=== PATIENT | female | born 1935 | race Caucasian/White ===

== ENCOUNTER → 2016-12-03 | Outpatient (CLI) | payer MEDICARE, BC ==
--- NOTE | 2016-12-04 08:58 | MM ---
Reason for exam: screening (asymptomatic). Last mammogram was performed 1 year ago. History: Patient is postmenopausal. Family history of breast cancer in 2 sisters at age 65 and breast cancer in mother at age 65. 2 excisional biopsies of the left breast. 2 excisional biopsies of the right breast. Took hormonal contraceptives for 20 years beginning at age 30. Physical Findings: A clinical breast exam by your physician is recommended on an annual basis and results should be correlated with mammographic findings. MG 3D Screening Mammo W/Cad Bilateral CC and MLO view(s) were taken. Prior study comparison: December 01, 2015, bilateral MG 3d screening mammo w/cad. November 29, 2014, bilateral MG screening mammo w CAD. The breast tissue is heterogeneously dense. This may lower the sensitivity of mammography. Stable benign calcifications. There is no discrete abnormality. No significant changes when compared with prior studies. ASSESSMENT: Benign, BI-RAD 2 RECOMMENDATION: Routine screening mammogram of both breasts in 1 year.
== END | disposition home or self-care (01) ==
LOC: RADMAMWWP 09:41
PROVIDERS: ATTEND Internal Medicine
DX: Z12.31 Encounter for screening mammogram for malignant neoplasm of breast (principal)
CPT/HCPCS: 77063; G0202

== ENCOUNTER → 2017-08-27 | Outpatient (CLI) | payer MEDICARE, BC | END | disposition home or self-care (01) | LOC: LABPAT 09:32 | PROVIDERS: ATTEND Orthopaedic Surgery | DX: Z01.812 Encounter for preprocedural laboratory examination (principal) | CPT/HCPCS: 87070 ==

== ENCOUNTER 2017-09-03 08:00 | Inpatient (IN) | payer MEDICARE, BC ==
[2017-08-28 11:18] VITALS: BMI 27.3
[~2017-09-03 08:00] MED LIST: ACETAMINOPHEN TAB 500 MG TAB PO ONE; LIDOCAINE 1% 20 ML VIAL (10MG/ML) FOR IV START INTRADERMA PRN; MELOXICAM 7.5 MG TAB PO ONE; MORPHINE SULFATE 4 MG/0.8 ML SYRINGE (INJ) IV PRN; ONDANSETRON ODT 4 MG TAB PO ONE; TRANEXAMIC ACID 1,000 MG in SODIUM CHLORIDE 0.9% 50 ML IVPB ONE; ceFAZolin IN SWFI 2 GM/20 ML SYRINGE IVP ONE
[2017-09-03] MEDS: LACTATED RINGERS 1,000 ML IV SCH (08:31)
[2017-09-03] MEDS ORDERED: DEXAMETHASONE SOD PHOS (MDV) 100 MG/10 ML VIAL IVP ONE (08:39)
[2017-09-03] MEDS ORDERED: MIDAZOLAM 2 MG/2 ML VIAL ONE ×2 (08:44→09:43)
[2017-09-03] MEDS ORDERED: MIDAZOLAM 2 MG/2 ML VIAL IVP ONE ×2 (09:00→09:20)
[2017-09-03] MEDS ORDERED: ONDANSETRON 4 MG/2 ML VIAL IVP PRN (09:07)
[2017-09-03] MEDS ORDERED: MAGNESIUM HYDROXIDE 2,400 MG/10 ML CUP PO PRN (09:07)
[2017-09-03] MEDS ORDERED: NA PHOS,M-B/NA PHOS,DI-BA 133 ML ENEMA RECTAL PRN (09:07)
[2017-09-03] MEDS ORDERED: HYDROcodone/APAP 5-325MG 1 EACH TAB PO PRN ×2 (09:07)
[2017-09-03] MEDS ORDERED: DIAZEPAM 5 MG TAB PO PRN ×2 (09:07)
[2017-09-03] MEDS ORDERED: NALOXONE 0.4 MG/ML 1 ML VIAL IV PRN (09:07)
[2017-09-03] MEDS ORDERED: BISACODYL 10 MG SUPP RECTAL PRN (09:07)
[2017-09-03] MEDS ORDERED: MORPHINE SULFATE 4 MG/0.8 ML SYRINGE (INJ) IVP PRN ×4 (09:07)
[2017-09-03] MEDS ORDERED: hydrOXYzine PAMOATE 25 MG CAP PO PRN (09:07)
[2017-09-03] MEDS ORDERED: fentaNYL (PF) 50 MCG/ML 2 ML AMP ONE (09:43)
[2017-09-03] MEDS ORDERED: SODIUM CHLORIDE 0.9% 100 ML BAG ONE (09:43)
[2017-09-03] MEDS ORDERED: TRANEXAMIC ACID 1,000 MG/10 ML VIAL ONE (09:43)
[2017-09-03] MEDS ORDERED: PROPOFOL 10 MG/ML 20 ML VIAL IV ONE (09:43)
[2017-09-03] MEDS ORDERED: ROPIVACAINE 1,100 MG, SODIUM CHLORIDE 0.9% 330 ML MISCELLANE PRN ×2 (10:07)
--- NOTE | 2017-09-03 10:09 | P.ONQ ---
Anesthesiology Proc Note - PNB - Peripheral Nerve Block Performed Left Adductor Canal Time Out Performed: Yes (08:50) Indication: Acute Post-Operative Pain, Requested by physician (Dr Mark Sebastian ) Sedation Type: Sedate with meaningful contact maintained Preparation: Sterile Dressing Position: Supine Catheter: Indwelling Needle Types: Other (see comment) (Ambrocio) Needle Size: 100mm (4") Needle Gauge: 21 Technique: Ultrasound (20cc) Blood Aspirated: No Pain Paresthesia on Injection Noted: No Resistance on Injection: Normal Events: Uneventful and Well Tolerated
[2017-09-03] MEDS: ROPIVACAINE 246.25 MG, EPINEPHrine 0.5 MG, KETOROLAC 30 MG, cloNIDine HCL/PF 80 MCG, WA... MISCELLANE ONE ×10 (10:12→10:31)
[2017-09-03] MEDS ORDERED: ceFAZolin 3,000 MG in SODIUM CHLORIDE 0.9% IRRIGATIO 3,000 ML IRRIGATION ONE (10:12)
--- NOTE | 2017-09-03 10:52 | P.OP ---
Date of Procedure: 09/03/17 Preoperative Diagnosis: Severe osteoarthritis left knee Postoperative Diagnosis: Severe osteoarthritis left knee Procedure(s) Performed: Left total knee arthroplasty Implants: Goncalves and Nephew Oxinium femoral component size 5, left narrow Goncalves & Nephew Tamiko II left nonporous tibial baseplate size 4 Goncalves & Nephew size 9 mm Legion XLPE high flexion articular insert, size 3-4 Goncalves & Nephew Tamiko II resurfacing patellar component, 32 mm All components were cemented using Naa bone cement.. The articulation is Oxinium on polyethylene. Anesthesia: spinal Surgeon: Mark Sebastian Dancer Or Choreographer #1: Vianney Benson Estimated Blood Loss (ml): 50 Pathology: other (Bone and cartilage) Condition: stable Disposition: PACU Indications for Procedure: After failure of conservative treatment we discussed the surgical and nonsurgical treatment options at length. Patient wishes to proceed with a total knee arthroplasty. Complications specific to this procedure were discussed at length, including but not limited to infection, bleeding, stiffness , and nerve injury. Patient is aware of all these complications and informed consent was obtained Operative Findings: The operative findings are consistent with severe osteoarthritis of the left knee Description of Procedure: Patient was seen in the preoperative area consent was reviewed and operative site was marked with a skin marker. An adductor canal pain catheter was placed by anesthesia in the preoperative area. Patient was then brought to the operating room and given preoperative antibiotics intravenously. A spinal anesthetic was administered by the anesthesia department. A tourniquet was placed on the upper thigh and the lower extremity was prepped and draped in usual sterile fashion. A gram of transexamic acid was given. A universal timeout was then performed which confirmed the patient's name, surgical site, ALLERGIES, and consent. The lower extremity was then exsanguinated and tourniquet was inflated to 250 mmHg. A standard and anterior midline approach to the knee was performed. The skin and subcutaneous tissue was dissected down to the patellar tendon. A medial parapatellar arthrotomy was then performed. The knee was then extended, the patellar was everted, and the knee was again flexed. Anterior horns of both menisci were excised, and a release was performed to the posterior medial aspect of the knee. On gross visual inspection, there was complete loss of articular cartilage in the medial and patellofemoral joint spaces. There was also significant cartilage damage in the lateral compartment. There were multiple periarticular osteophytes which were then removed with a Ronguer. The femoral canal was then opened with the appropriate drill, and the intramedullary femoral cutting guide was then placed and set for 4 of valgus. The distal femoral cutting block was then pinned in place, and the distal femur was then cut. The cutting block was then removed and the cut was checked for flatness. Next, the sizing guide was then placed and set for 3 external rotation based off of the epicondylar axis and Whitesides line. After the femur was sized, the appropriate 4-in-1 cutting block was then pinned in place. The anterior condyles were cut without notching. The posterior and chamfer cuts were performed while protecting the collateral ligaments. The cutting block was then removed, and the femoral canal was plugged with autologous bone. Attention was then directed to the tibia. The remaining ACL was removed with a Ronguer, and the tibia was then gently subluxed forward with a large bent knee retractor. Any remaining menisci was excised. The posterior lateral corner was cauterized in order to cauterize the lateral geniculate artery. The extra medullary tibial cutting guide was then placed, set for the appropriate rotation , slope, and depth of resection. The proximal tibia cutting guide was then pinned in place. Proximal tibia was then cut and sized. Next trials were then placed with the appropriate-sized insert. The knee was able to fully extend and flex to 130 and was stable throughout all range of motion. The knee was then extended, patella everted. Patella was then measured, and then using an osteotomy guide, the patella was cut at the appropriate level. The patella was then measured and drilled and the patella trial was then placed. The knee was then taken through range of motion with the patella trial and the patella tracked normally. The knee was then extended patella trial was then removed and the patella was everted. Knee was then flexed and lug holes were drilled through the femoral trial and the femoral trial was then removed. The tibial was then exposed, and the tibial broach guide was then pinned in place after it was set for the appropriate rotation to allow for the most coverage without overhang. The tibia was then reamed and broached. The cut surfaces of bone were then irrigated with pulsatile lavage. The posterior structures were injected with the ropivacaine solution. The knee was also irrigated with Irrisept solution. The components were then opened, the cement was mixed, and the components were then cemented in place. The cement was allowed to harden with the knee in full extension. While the cement was hardening, the remaining soft tissues were then injected with a ropivacaine solution, which consisted of 246.25 mg of ropivacaine, 0.5 mg of epinephrine, 30 mg of Toradol, 80 g of clonidine, and 48.45 mL of sterile water, for a total of 100 mL of fluid injected. After the cemented hardened. The tourniquet was released, and hemostasis was obtained. A second gram of transexamic acid was given. The knee was again irrigated. The knee was again taken through range of motion and found to be stable throughout all range of motion of 0-130 , and the patella tracked normally. The fascia was then closed with #2 strata fix suture. The subcutaneous tissue was closed with 3-0 Vicryl and 3-0 strata fix. Dermabond glue was used for the skin and placed with the knee in flexion. The patient was placed in a sterile silver dressing. Patient was then transferred to recovery room in stable condition. The account assistant KEVIN Wallace was required due the complexity surgery and the need for a skilled ophthalmic surgical assistant. She assisted in positioning, draping, retraction, and closure of the wound.
--- NOTE | 2017-09-03 12:01 | XR ---
EXAMINATION TYPE: XR knee limited LT DATE OF EXAM: 09/03/2017 COMPARISON: NONE TECHNIQUE: Two views submitted HISTORY: Post op FINDINGS: There is a prosthetic knee in near anatomic alignment. There is soft tissue edema and emphysema. IMPRESSION: 1. Postoperative change. Appears in near-anatomic alignment
[2017-09-03] MEDS: SODIUM CHLORIDE 0.9% 1,000 ML IV SCH (12:33)
[2017-09-03] MEDS ORDERED: traMADol 50 MG TAB PO PRN (13:57)
[2017-09-03] MEDS ORDERED: ACETAMINOPHEN TAB 325 MG TAB PO PRN (13:58)
--- NOTE | 2017-09-03 14:20 | P.CONS ---
History of Present Illness - Reason for Consult Consult date: 09/03/17 Hypertension Requesting physician: Mark Sebastian - Chief Complaint left knee pain - History of Present Illness Patient is an 82-year-old female with a past medical history of arthritis, fibrocystic breast, and white coat hypertension who presented for elective left total knee arthroplasty. She typically sees Dr. Le she is not on any chronic medications. We are asked to consult for medical management. Patient states her preoperative blood pressure showed a systolic blood pressure in the 200s. She states she has a history of whitecoat hypertension and her blood pressure is typically normal at home. She sees Dr. Le once a year for her physical. She reports that she's been having left knee pain for the last several years. Approximately one year ago she underwent an injection in the left knee which was not effective. Since that time she is struggled with pain. She has tried pain medications but all of them including Ultram resulted in a groggy medicated feeling. She therefore decided to go for surgery on the left knee. She reports no recent illnesses. She denies any chest pain, shortness of breath , nausea, vomiting, diarrhea, or dysuria prior to surgery. She has no other complaints currently. She is hoping to go home without any narcotic-based pain medications. We discussed the alternative is typically at the least sedating out of all of the narcotic-based pain medications. I did discuss with her that Tylenol and moving may not adequately control her pain after surgery. Review of Systems Positives: + Left knee pain Remainder of review of systems is negative Past Medical History Past Medical History: Osteoarthritis (OA) Additional Past Medical History / Comment(s): Fibrocystic breast disease, White coat hypertension History of Any Multi-Drug Resistant Organisms: None Reported Past Surgical History: Breast Surgery, Cholecystectomy Additional Past Surgical History / Comment(s): fibercystic tumors removed diana breasts Past Anesthesia/Blood Transfusion Reactions: Postoperative Nausea & Vomiting ( PONV) Additional Past Anesthesia/Blood Transfusion Reaction / Comm: PONV 40yrs ago post cholecystectomy Past Psychological History: No Psychological Hx Reported Smoking Status: Never smoker Past Alcohol Use History: None Reported Past Drug Use History: None Reported - Past Family History Mother Family Medical History: Cancer, Diabetes Mellitus Additional Family Medical History / Comment(s): breast CA Sister(s) Family Medical History: Cancer Additional Family Medical History / Comment(s): Breast CA Father Additional Family Medical History / Comment(s): Alcoholism, heart disease Medications and Allergies Home Medications Medication Instructions Recorded Confirmed Type Aspirin 81 mg PO DAILY 08/28/17 09/03/17 History Bone And Immune Health Supp 1 tab PO DAILY 08/28/17 09/03/17 History Calcium Carbonate/Vitamin D3 1 tab PO DAILY 08/28/17 09/03/17 History [Calcium 600-Vit D3 200 Tablet] Allergies Allergy/AdvReac Type Severity Reaction Status Date / Time No Known Allergies Allergy Verified 09/03/17 12:23 Physical Exam Osteopathic Statement: *. No significant issues noted on an osteopathic structural exam other than those noted in the History and Physical/Consult. Vitals: Vital Signs Temp Pulse Resp BP Pulse Ox 09/03/17 14:09 88 138/65 09/03/17 14:00 90 144/65 09/03/17 13:45 77 142/67 09/03/17 13:30 76 145/67 09/03/17 13:15 142/67 09/03/17 13:00 90 152/71 09/03/17 12:41 97.6 F 76 13 145/67 97 09/03/17 12:00 80 16 130/60 94 L 09/03/17 11:45 79 16 131/60 94 L 09/03/17 11:30 72 16 122/61 95 09/03/17 11:20 97 F L 82 16 131/62 93 L 09/03/17 09:03 78 16 169/76 100 09/03/17 08:20 97.6 F 84 16 186/74 96 Intake and Output 09/02/17 09/03/17 09/03/17 22:59 06:59 14:59 Intake Total 901 Output Total 50 Balance 851 Intake: IV 901 Output: Estimated Blood Loss 50 General: non toxic, mild distress due to pain, appears at stated age, normal weight Derm: no unusual rashes/lesions no unusual ecchymoses, warm, dry Head: atraumatic, normocephalic, symmetric Eyes: EOMI, no lid lag, anicteric sclera, pupils equal round reactive to light ENT: Nose and ears atraumatic, no thrush, no pharyngeal erythema Neck: No thyromegaly, no cervical lymphadenopathy, trachea midline, supple Mouth: no lip lesion, mucus membranes moist Cardiovascular: S1S2 reg, no murmur, positive posterior tibial pulse bilateral, no edema, capillary refill less than 2 seconds Lungs: CTA bilateral, no rhonchi, no rales , no accessory muscle use Abdominal: soft, nontender to palpation, no guarding, no appreciable organomegaly, normal bowel sounds Ext: no gross muscle atrophy, muscle strength 5 out of 5 upper extremities grossly, no contractures, left knee with Michael wrap in place and pain pump in place Neuro: CN II-XI grossly intact, light touch intact all 4 extremities, finger to nose within normal limits, Psych: Alert, oriented, appropriate affect Assessment and Plan Assessment: Osteoarthritis status post left knee arthroplasty -Aspirin per surgery -Added Ultram and Tylenol as options for pain that she does not want more sedating things such as [place] or Motrin -Continue with On-Q pain pump -Check CBC in a.m. Elevated blood pressures without history of hypertension -Follow blood pressures closely -Has history of white coat hypertension Thank you for allowing us to participate in the care of this pleasant patient. DVT prophylaxis: ASA Discussed with: Patient, family, nursing Anticipated discharge: [address]: home with home health A total of 40 minutes was spent on the care of this complex patient more than 50 % of the time was spent in counseling and care coordination.
[2017-09-03] MEDS: ceFAZolin IN SWFI 2 GM/20 ML SYRINGE IVP SCH (17:35)
[2017-09-03] MEDS ORDERED: SENNOSIDES-DOCUSATE SODIUM 1 EACH TAB PO SCH (21:00)
[2017-09-03] MEDS: ASPIRIN 325 MG TAB PO SCH (21:19)
[2017-09-04] MEDS: ceFAZolin IN SWFI 2 GM/20 ML SYRINGE IVP SCH (01:35)
[2017-09-04 01:48] VITALS: TEMP 98.3
[2017-09-04] MEDS: SODIUM CHLORIDE 0.9% 1,000 ML IV SCH (03:19)
[2017-09-04] MEDS: LACTATED RINGERS 1,000 ML IV SCH (03:19)
[2017-09-04 07:22] LABS: Basophils % (A) 0 %; Eosinophils % (A) 0 %; HCT 34.8 % (34.0-46.0); HGB 11.5 gm/dL (11.4-16.0); Lymphocytes # (A) 1.7 k/uL (1.0-4.8); Lymphocytes % (A) 14 %; MCH 29.6 pg (25.0-35.0); MCHC 33.1 g/dL (31.0-37.0); MCV 89.3 fL (80.0-100.0); Mean Platelet Volume 7.6; Monocytes # (A) 0.7 k/uL (0-1.0); Monocytes % (A) 6 %; Neutrophils # (A) 9.1 k/uL (1.3-7.7); Neutrophils % (A) 78 %; Platelet Count 172 k/uL (150-450); RBC 3.89 m/uL (3.80-5.40); RDW 12.7 % (11.5-15.5); WBC 11.7 k/uL (3.8-10.6)
[2017-09-04 07:50] VITALS: BP 148/77; PULSE 70; RESP 16
--- NOTE | 2017-09-04 08:14 | P.DS ---
Providers Date of admission: 09/03/17 08:00 Expected date of discharge: 09/04/17 Attending physician: Mark Sebastian Consults: 09/03/17 09:07 Consult Physician Routine Consulting Provider: Jeffy Le Consult Reason/Comments: medical management Do you want consulting provider notified?: Yes 09/03/17 12:33 Consult Physician Routine Consulting Provider: Shayne Marion Consult Reason/Comments: medical management Do you want consulting provider notified?: Yes Primary care physician: Jeffy Le - Discharge Diagnosis(es) (1) Primary osteoarthritis of left knee Current Visit: Yes Status: Acute (2) S/P total knee arthroplasty Current Visit: Yes Status: Acute Hospital Course: This is a 82-year-old female with known history of degenerative arthritis of the left knee. The patient presents for evaluation. After discussion and consideration patient elects to proceed with total knee arthroplasty. The patient is seen preoperatively by Dr. Sebastian and medically cleared for surgery by their primary care physician. Patient is [facility] to [facility] on 09/03/2017 for total knee arthroplasty. The procedures performed without complication or sequelae. The patient is doing well postoperatively. Labs and vital signs are stable on day of discharge. On day of discharge patient's knee incision is healing well. There is minimal erythema. There is no drainage noted at this time. There is minimal soft tissue swelling to the knee. Patient has full foot and ankle motion without difficulty or pain. Neurovascular status to the left lower extremity is intact. Patient is discharged home in good condition. Please see med rec for accurate list of home medications. Plan - Discharge Summary Discharge Rx Participant: Yes New Discharge Prescriptions: New Aspirin 325 mg PO BID #60 tab Sennosides [Senokot] 1 tab PO BID #60 tablet traMADol HCl [Ultram] 1 - 2 tab PO Q6H PRN #90 tab PRN Reason: Pain No Action Aspirin 81 mg PO DAILY Calcium Carbonate/Vitamin D3 [Calcium 600-Vit D3 200 Tablet] 1 tab PO DAILY Bone And Immune Health Supp 1 tab PO DAILY Discharge Medication List Aspirin 81 mg PO DAILY 08/28/17 [History] Bone And Immune Health Supp 1 tab PO DAILY 08/28/17 [History] Calcium Carbonate/Vitamin D3 [Calcium 600-Vit D3 200 Tablet] 1 tab PO DAILY [History] Aspirin 325 mg PO BID #60 tab 09/04/17 [Rx] Sennosides [Senokot] 1 tab PO BID #60 tablet 09/04/17 [Rx] traMADol HCl [Ultram] 1 - 2 tab PO Q6H PRN #90 tab 09/04/17 [Rx] Follow up Appointment(s)/Referral(s): Mark Sebastian DO [Doctor of Osteopathic Medicine] - 2 Weeks Activity/Diet/Wound Care/Special Instructions: Weightbearing as tolerated with a walker CPM 5-6h daily Leave dressing intact. May be removed by home care nurse in 10 days. May shower with dressing on. [facility] with questions or concerns [phone] Discharge Disposition: HOME WITH HOME HEALTH SERVICES
--- NOTE | 2017-09-04 08:18 | P.PN ---
Subjective Progress Note Date: 09/04/17 Principal diagnosis: Patient is an 82-year-old female with a past medical history of arthritis, fibrocystic breast, and white coat hypertension who presented for elective left total knee arthroplasty. She typically sees Dr. Le she is not on any chronic medications. We are asked to consult for medical management. Patient states her preoperative blood pressure showed a systolic blood pressure in the 200s. She sees Dr. Le once a year for her physical. She has a blood pressure cuff at home. Patient seen and examined at bedside. Feeling well. Denies pain. No nausea, no vomiting, no BM yet. No chest pain or shortness of breath. Feeling well wants to go home. Objective - Vital Signs Vital signs: Vital Signs Temp 98.3 F 09/04/17 01:29 Pulse 70 09/04/17 07:49 Resp 16 09/04/17 07:49 BP 148/77 09/04/17 07:49 Pulse Ox 95 09/04/17 07:49 Intake & Output 09/03/17 09/04/17 09/04/17 18:59 06:59 18:59 Intake Total 1181 Output Total 350 Balance 831 Intake: IV 901 Oral 280 Output: Urine 300 Estimated Blood Loss 50 Other: # Voids 1 1 - Exam General: non toxic, no distress, appears at stated age Derm: warm, dry Head: atraumatic, normocephalic, symmetric Eyes: EOMI, no lid lag, anicteric sclera Mouth: no lip lesion, mucus membranes moist Cardiovascular: S1S2 reg, no murmur, positive posterior tibial pulse bilateral, Lungs: CTA bilateral, no rhonchi, no rales , no accessory muscle use Abdominal: soft, nontender to palpation, no guarding, no appreciable organomegaly Ext: no gross muscle atrophy, no edema, no contractures Neuro: CN II-XI grossly intact, no focal neuro deficits Psych: Alert, oriented, appropriate affect - Labs CBC & Chem 7: 09/04/17 06:16 Labs: Abnormal Lab Results - Last 24 Hours (Table) 09/04/17 Range/Units 06:16 WBC 11.7 H (3.8-10.6) k/uL Neutrophils # 9.1 H (1.3-7.7) k/uL Assessment and Plan Assessment: Elevated blood pressures without history of hypertension -D/W patient she will continue to follow her BP at home and will see Dr. Le in 2 weeks for a recheck. She already has a blood pressure cuff at home. Will not start medications at this point in time. -Has history of white coat hypertension Osteoarthritis status post left knee arthroplasty -Aspirin per surgery - pain control -Continue with On-Q pain pump Thank you for allowing us to participate in the care of this pleasant patient. She is medically stable for discharged once cleared by ortho. DVT prophylaxis: ASA Discussed with: Patient Anticipated discharge place: home with home health A total of 25 minutes was spent on the care of this complex patient more than 50 % of the time was spent in counseling and care coordination.
[2017-09-04] MEDS ORDERED: MELOXICAM 7.5 MG TAB PO SCH (09:00)
--- NOTE | 2017-09-04 09:33 | P.PN ---
Progress Note - Text The patient is status post left adductor canal catheter placement. The catheter was placed for postoperative pain control, status post total left arthroplasty. Ropivacaine 0.2% is infusing at 8 mLs per hour. The patient has no complaints of left lower extremity numbness or weakness. Patient's VAS score is 0 -10. Assessment: Patient's adductor canal catheter is in place and working appropriately. Plan: continue infusion and adjust it as needed.
[2017-09-04] MEDS: ASPIRIN 325 MG TAB PO SCH (11:18)
[2017-09-04] MEDS ORDERED: MORPHINE ORAL SOLN 10 MG/5 ML CUP PO PRN ×3 (13:53→13:55)
--- NOTE | 2017-09-06 10:36 | CDI ---
Last Revision, April 2017 Documentation Clarification Form Date: 09/06/17 From: Shanna Martinez Admit Date: 09/03/2017 8:00:00 AM Patient Name: Светлана Gonzalez Visit Number: [id number] Discharge Date: 09/03/17 ATTENTION: The Clinical Documentation Specialists (CDI) and [facility] Coding Staff appreciate your assistance in clarifying documentation. Please respond to the clarification below the line at the bottom and electronically sign. The CDI & [facility] Coding staff will review the response and follow-up if needed. Please note: Queries are made part of the Legal Health Record. If you have any questions, please contact the author of this message via ITS. Dr. Mark Sebastian Patient has been described as-Patient has BMI that is measures above average for populous and may wish to discuss weight loss options further with a family member. Calculated BMI is 27 In order to capture the severity of condition associated with patient BMI of 27 , a clinical diagnoses needs to be documented by the physician. Please clarify : Obese Morbidly obese Other, please specify ____ Unable to determine MTDD
--- NOTE | 2017-09-11 12:14 | CDI ---
Last Revision, April 2017 Documentation Clarification Form Date: 09/11/17 From: Shanna Martinez Phone: Jessica Jaime Grievance Coordinator [phone] Patient Name: Светлана Gonzalez Visit Number: [id number] Admit Date: 09/03/17 Discharge Date: 09/04/17 ATTENTION: The Clinical Documentation Specialists (CDI) and [facility] Coding Staff appreciate your assistance in clarifying documentation. Please respond to the clarification below the line at the bottom and electronically sign. The CDI & [facility] Coding staff will review the response and follow-up if needed. Please note: Queries are made part of the Legal Health Record. If you have any questions, please contact the author of this message via ITS. Dr. Mark Sebastian Patient has been described as-Patient has BMI that is measures above average for populous and may wish to discuss weight loss options further with a family member. Calculated BMI is 27 In order to capture the severity of condition associated with patient BMI of 27 , a clinical diagnoses needs to be documented by the physician. Please clarify : Obese Morbidly obese Other, please specify ____ Unable to determine MTDD
== END 2017-09-04 14:38 | disposition home health service (06) | DRG 470 ==
LOC: 2ORMAIN 08:00 → 3SUR 11:47
PROVIDERS: ADMIT Orthopaedic Surgery; ATTEND Orthopaedic Surgery
PROC: 0SRD069 Replacement of Left Knee Joint with Oxidized Zirconium on Polyethylene Synthetic Substitute, Cemented, Open Approach (ICD-10-PCS; principal; 2017-09-03 09:50)
DX: M17.12 Unilateral primary osteoarthritis, left knee (principal); M25.762 Osteophyte, left knee; R03.0 Elevated blood-pressure reading, without diagnosis of hypertension; Z83.3 Family history of diabetes mellitus; Z90.49 Acquired absence of other specified parts of digestive tract; Z79.82 Long term (current) use of aspirin; Z79.1 Long term (current) use of non-steroidal anti-inflammatories (NSAID); Z79.891 Long term (current) use of opiate analgesic; Z80.3 Family history of malignant neoplasm of breast; Z82.49 Family history of ischemic heart disease and other diseases of the circulatory system; Z79.899 Other long term (current) drug therapy
CPT/HCPCS: 85025; 88300

== ENCOUNTER → 2017-12-09 | Outpatient (CLI) | payer MEDICARE, BC ==
--- NOTE | 2017-12-11 11:40 | MM ---
Reason for exam: screening (asymptomatic). Last mammogram was performed 1 year ago. History: Patient is postmenopausal. Family history of breast cancer in 2 sisters at age 65 and breast cancer in mother at age 65. 2 excisional biopsies of the left breast. 2 excisional biopsies of the right breast. Took hormonal contraceptives for 20 years beginning at age 30. Physical Findings: A clinical breast exam by your physician is recommended on an annual basis and results should be correlated with mammographic findings. MG 3D Screening Mammo W/Cad Bilateral CC and MLO view(s) were taken. Prior study comparison: December 03, 2016, bilateral MG 3d screening mammo w/cad. December 01, 2015, bilateral MG 3d screening mammo w/cad. There are scattered fibroglandular densities. No significant changes when compared with prior studies. ASSESSMENT: Benign, BI-RAD 2 RECOMMENDATION: Routine screening mammogram of both breasts in 1 year.
== END | disposition home or self-care (01) ==
LOC: RADMAMWWP 09:49
PROVIDERS: ATTEND Internal Medicine
DX: Z12.31 Encounter for screening mammogram for malignant neoplasm of breast (principal)
CPT/HCPCS: 77063; 77067

== ENCOUNTER → 2018-12-11 | Outpatient (CLI) | payer MEDICARE, BC ==
--- NOTE | 2018-12-12 14:54 | MM ---
Reason for exam: screening (asymptomatic). Last mammogram was performed 1 year ago. History: Patient is postmenopausal. Family history of breast cancer in 2 sisters at age 65 and breast cancer in mother at age 65. 2 excisional biopsies of the left breast. 2 excisional biopsies of the right breast. Took hormonal contraceptives for 20 years beginning at age 30. Physical Findings: A clinical breast exam by your physician is recommended on an annual basis and results should be correlated with mammographic findings. MG 3D Screening Mammo W/Cad Bilateral CC and MLO view(s) were taken. Prior study comparison: December 09, 2017, bilateral MG 3d screening mammo w/cad. December 03, 2016, bilateral MG 3d screening mammo w/cad. The breast tissue is heterogeneously dense. This may lower the sensitivity of mammography. Benign appearing bilateral calcifications. No suspicious abnormality. Chronic right nipple retraction. Post surgical change on the left. No significant changes when compared with prior studies. ASSESSMENT: Benign, BI-RAD 2 RECOMMENDATION: Routine screening mammogram of both breasts in 1 year.
== END | disposition home or self-care (01) ==
LOC: RADMAMWWP 11:35
PROVIDERS: ATTEND Internal Medicine
DX: Z12.31 Encounter for screening mammogram for malignant neoplasm of breast (principal)
CPT/HCPCS: 77063; 77067

== ENCOUNTER → 2020-01-15 | Outpatient (CLI) | payer MEDICARE, BC ==
--- NOTE | 2020-01-19 12:17 | MM ---
Reason for exam: screening (asymptomatic). Last mammogram was performed 1 year and 1 month ago. History: Patient is postmenopausal. Family history of breast cancer in 2 sisters at age 65 and breast cancer in mother at age 65. 2 excisional biopsies of the left breast. 2 excisional biopsies of the right breast. Took hormonal contraceptives for 20 years beginning at age 30. Physical Findings: A clinical breast exam by your physician is recommended on an annual basis and results should be correlated with mammographic findings. MG 3D Screening Mammo W/Cad Bilateral CC and MLO view(s) were taken. Prior study comparison: December 11, 2018, bilateral MG 3d screening mammo w/cad. December 09, 2017, bilateral MG 3d screening mammo w/cad. There are scattered fibroglandular densities. Finding #1: Architectural distortion in the upper outer quadrant of the left breast consistent with known excision changes. Finding #2: There are typically benign round calcifications in both breasts. There is no new dominant lesion. ASSESSMENT: Benign, BI-RAD 2 RECOMMENDATION: Routine screening mammogram of both breasts in 1 year.
== END | disposition home or self-care (01) ==
LOC: RADMAMWWP 13:04
PROVIDERS: ATTEND Nurse Practitioner Adult Health
DX: Z12.31 Encounter for screening mammogram for malignant neoplasm of breast (principal)
CPT/HCPCS: 77063; 77067

== ENCOUNTER → 2020-11-30 | Outpatient (CLI) | payer MEDICARE, BC ==
--- NOTE | 2020-11-30 15:15 | CT ---
EXAMINATION TYPE: CT abdomen pelvis w con DATE OF EXAM: 11/30/2020 COMPARISON: None HISTORY: Patient states she had an US that showed spot on right kidney. CT DLP: 1256 mGycm CONTRAST: CT scan of the abdomen and pelvis is performed with Oral Contrast and with IV Contrast, patient injec dominic with 80 mL of Isovue M300. FINDINGS: LUNG BASES-: No visible nodule. No infiltrate. LIVER/GB: Cholecystectomy clips are in place. No space occupying hepatic lesion. Biliary tree is of n ormal caliber. PANCREAS: No inflammation. No distinct mass. SPLEEN: No splenic enlargement. No lesion seen. ADRENALS: No nodule. No thickening. KIDNEYS/BLADDER: Extrarenal pelvis right kidney. Parapelvic cyst noted left kidney. No hydronephrosi s. No nephrolithiasis. No distinct renal mass. Urinary bladder grossly unremarkable. BOWEL: Normal appendix. Normal bowel caliber. No inflammation. GENITAL ORGANS: No gross abnormality. LYMPH NODES: No greater than 1cm abdominal or pelvic lymph nodes are appreciated. AORTA: No significant abnormality. OSSEOUS STRUCTURES: No significant abnormality is seen. OTHER: No significant additional abnormality is seen. IMPRESSION: 1. No evidence of solid renal mass. Parapelvic cyst left kidney and extrarenal pelvis right kidney.
== END | disposition home or self-care (01) ==
LOC: RADCTMAIN 12:32
PROVIDERS: ATTEND Internal Medicine
DX: N28.1 Cyst of kidney, acquired (principal)
CPT/HCPCS: 82565; 84520; 74177; 36415; Q9967 ×2

== ENCOUNTER → 2021-03-09 | Outpatient (CLI) | payer MEDICARE, BC ==
--- NOTE | 2021-03-09 09:21 | BD ---
EXAMINATION TYPE: Axial Bone Density DATE OF EXAM: 03/09/2021 COMPARISON: 11.22.2011 CLINICAL HISTORY: 85 YR OLD FEMALE.....ICD-10 CODE: M81.0 OSTERPOROSIS.... Height: 63.8 Weight: 167 FRAX RISK QUESTIONS: NOTHING ADDITIONAL TO ADD HERE RISK FACTORS HISTORY OF: Postmenopausal woman: YES, AT ABOUT 52 YRS OLD Lost more than 2 inches in height since high school: YES Frequent falls: PT IS ELDERLY Hyperparathyroidism: NO Adrenal Insufficiency: NO MEDICATIONS: Additional Medications: BP MEDS, VIT D NSAIDS FOR ARTHRITIS Additional History: HYPERTENSION, VIT D DEFICIENT, ARTHRITIS, EXAM MEASUREMENTS: Bone mineral densitometry was performed using the [employer]. Bone mineral density as measured about the Lumbar spine is: ----- L1-L4(G/cm2): 0.994 T Score Values are as follows: ----- L1: -2.4 ----- L2: -2.1 ----- L3: -0.3 ----- L4: -1.6 ----- L1-L4: -1.6 Bone mineral density has: Decreased -1.3% since study of: 11.22.2011 Bone mineral density about the R hip (g/cm2): 0.733 Bone mineral density about the L hip (g/cm2): 0.741 T Score values are as follows: -----R Neck: -2.1 -----L Neck: -2.2 -----R Total: -2.2 -----L Total: -2.1 Bone mineral density has: Decreased -11.0% since study of: 11.22.2011 FRAX%s: THERE IS A 16.5% CHANCE FOR A MAJOR OSTEOPOROTIC FX AND A 5.5% FOR HIP.....PROBABILITY FO R FX IN 10 YRS TIME IMPRESSION: Osteopenia lumbar spine and bilateral femora. NOTE: T-SCORE=SD OF THE YOUNG ADULT MEAN.
--- NOTE | 2021-03-09 09:21 | MM ---
Reason for exam: screening (asymptomatic). Last mammogram was performed 1 year and 2 months ago. History: Patient is postmenopausal. Family history of breast cancer in 2 sisters at age 65 and breast cancer in mother at age 65. 2 excisional biopsies of the left breast. 2 excisional biopsies of the right breast. Took hormonal contraceptives for 20 years beginning at age 30. Physical Findings: A clinical breast exam by your physician is recommended on an annual basis and results should be correlated with mammographic findings. MG 3D Screening Mammo W/Cad Bilateral CC and MLO view(s) were taken. Prior study comparison: January 15, 2020, bilateral MG 3d screening mammo w/cad. December 11, 2018, bilateral MG 3d screening mammo w/cad. December 09, 2017, bilateral MG 3d screening mammo w/cad. The breast tissue is heterogeneously dense. This may lower the sensitivity of mammography. Finding #1: Architectural distortion in the left breast consistent with known excisional changes. Finding #2: There are typically benign round calcifications in both breasts. There is no discrete abnormality. ASSESSMENT: Benign, BI-RAD 2 RECOMMENDATION: Routine screening mammogram of both breasts in 1 year.
== END | disposition home or self-care (01) ==
LOC: RADMAMWWP 06:56
PROVIDERS: ATTEND Internal Medicine
DX: Z12.31 Encounter for screening mammogram for malignant neoplasm of breast (principal); M85.89 Other specified disorders of bone density and structure, multiple sites; Z78.0 Asymptomatic menopausal state
CPT/HCPCS: 77063; 77067; 77080